=== PATIENT | female | born 1935 | race Caucasian/White ===

== ENCOUNTER 2017-06-27 00:32 | Inpatient (IN) ==
[2017-06-27] MEDS ORDERED: methylPREDNISolone SOD SUC 125 MG/2 ML VIAL IV STA (01:03)
[2017-06-27] MEDS ORDERED: SODIUM CHLORIDE 0.9% 500 ML IV STA (01:03)
[2017-06-27] MEDS ORDERED: ALBUTEROL/IPRATROPIUM 3 ML NEB RESP TX STA (01:03)
[2017-06-27] MEDS ORDERED: cefTRIAXone 1,000 MG in SODIUM CHLORIDE 0.9% 100 ML IV STA (01:04)
[2017-06-27] MEDS ORDERED: methylPREDNISolone SOD SUC 125 MG/2 ML VIAL ONE (01:21)
[2017-06-27] MEDS ORDERED: cefTRIAXone 1,000 MG VIAL ONE (01:21)
--- NOTE | 2017-06-27 01:24 | Emergency Department Note ---
IDayan Emily, am scribing for, and in the presence of, Jagjit Griggs MD 01: 12. Indu Bermudez Charles R, MD, personally performed the services described in this documentation, ascribed by Lexis Hanley in my presence, and it is both accurate and complete . Arrival - Arrival Chief Complaint: Blood Pressure Stated Complaint: hypotension ED Nursing Triage Note: PT TO ROOM VIA [facility] STRETCHER. EMS STATES THEY WERE CALLED FOR LOW BPA ND LOW SATS. BP 126/. SATS 92 ON ROOM AIR AND 96 ON 2LNC. Mode of Arrival: Stretcher Limitations: Altered Mental Status (dementia) Source: RN Notes Reviewed Time Seen by Provider: 06/27/17 00:52 - History of Present Illness HPI Narrative: Pt is a 81 y/o female who was brought to ED by EMS from [facility] for further evaluation of hypotension. Pt is demented and is groggy, not wanting to wake up to answer questions. care home sent pt by EMS without sending report first. Her BP is 134/44 in ED. Pt rolls around in wheelchair at retirement, has COPD and sees Dr. Dacosta. She has low grade fever of 99.6 in ED. Pt's room air sat is at 92 and 96 with O2, but no O2 at retirement. Unsure of BP during the week along with O2 sat. Pt has chronic lesions on right arm and left philippe because pt pickers at her skin. Onset (ago): hour(s) Consistency: constant Severity: mild Severity scale (1-10): 2 Quality: other (low) Allergies/Adverse Reactions: Allergies Allergy/AdvReac Type Severity Reaction Status Date / Time Sulfa (Sulfonamide Allergy Intermediate RASH Verified 06/27/17 00:48 Antibiotics) Home Medications: Home Medications Medication Instructions Recorded Confirmed Type Atorvastatin Calcium 20 mg PO BEDTIME 05/28/15 12/10/16 History Levothyroxine Tab [Synthroid Tab] 100 mcg PO DAILY 05/28/15 12/10/16 History Losartan Potassium 50 mg PO DAILY 05/28/15 12/10/16 History Magnesium Hydroxide Susp [Milk of 2 teaspoon PO Q8H PRN 05/28/15 12/10/16 History Magnesia] Carvedilol [Coreg] 6.25 mg PO BID tablet 05/30/15 12/10/16 Rx Docusate Sodium Cap [Colace Cap] 100 mg PO BID PRN #0 capsule 05/30/15 12/10/16 Rx Magnesium Chloride [Slow Mag] 64 mg PO BID #28 tablet 05/30/15 12/10/16 Rx metFORMIN XR [Glucophage Xr] 500 mg PO DAILY W/BREAKFAST #30 05/30/15 12/10/16 Rx tablet HYDROcodone/ACETAMIN 5-325 [[place] 1 tablet PO Q6H PRN #10 tablet 02/01/16 Rx 5-325] Donepezil [Aricept] 10 mg PO BEDTIME 08/04/16 12/10/16 History Melatonin/Pyridoxine HCl (B6) 9 each PO BEDTIME 08/04/16 12/10/16 History [Melatonin 3 mg Tablet] Multivitamin [Multivitamins] 1 each PO DAILY 08/04/16 12/10/16 History Ramelteon [Rozerem] 8 mg PO BEDTIME 08/04/16 12/10/16 History Sertraline [Zoloft] 100 mg PO DAILY 08/04/16 12/10/16 History Acetaminophen Tab [Tylenol Tab] 650 mg PO Q4H PRN 12/10/16 12/10/16 History Insulin Aspart [NovoLOG] See Protocol SUBCUT ACHS PRN 12/10/16 12/10/16 History LORazepam TAB [Ativan Tab] 0.5 mg PO Q6H PRN 12/10/16 12/10/16 History clonazePAM TAB [KlonoPIN] 0.5 mg PO BID 12/10/16 12/10/16 History LORazepam TAB [Ativan Tab] 0.5 mg PO Q6H PRN #0 tablet 12/13/16 Rx Losartan [Cozaar] 25 mg PO DAILY tablet 12/13/16 Rx Levofloxacin Tab [Levaquin Tab] 500 mg PO DAILY #10 tablet 06/27/17 Rx Review of System - Review of System ROS unobtainable: due to mental status (dementia) Medical,Surgical,& Family Hx - Medical History Cardio: History of: Hypertension Psychological: History of: Behavior Problems (dementia- wandered and picks at skin) Neurology: History of: Dementia Endocrine: History of: Dyslipidemia - Family History Family History: noncontributory - Social History Smoking Status: Smoker, status unknown Frequency of Alcohol Use: None Type of Drug Use: None Marital Status: Single Lives With:: retirement Functional capacity: wheelchair bound Exam Vital Signs: Vital Signs Temperature 99.6 F 06/27/17 00:42 Pulse Rate 51 L 06/27/17 01:27 Respiratory Rate 20 06/27/17 01:27 Blood Pressure 134/44 06/27/17 00:42 O2 Sat by Pulse Oximetry 99 06/27/17 01:27 - General General appearance: lethargic (but arousable), other (chronically demented) - Head Head exam: Present: atraumatic, normocephalic, other (temporal wasting) - Eye Eye exam: Present: PERRL, EOMI - ENT ENT exam: Present: mucous membranes moist. Absent: mucous membranes dry - Chest Chest inspection: Present: symmetric chest wall rise (barrel chested) - Respiratory Respiratory exam: Present: other (deep cough). Absent: respiratory distress - Cardiovascular Cardiovascular exam: Present: bradycardia, normal heart sounds - Extremities Exam Extremities exam: Absent: pedal edema - Neurological Exam Neurological exam: Present: CN II-XII intact. Absent: oriented X3 - Skin Skin exam: Present: warm, dry. Absent: intact (lesions on right wrist) Course Course Narrative: Orders called out to the retirement and talk to when the nurses out there taking care of this patient. After probing there record and prep with our records patient was here December similar symptoms. Patient has a history of COPD combative dementia. Patient likes to pick her skin and poor skin off and she also likes to use colorful language that is offensive to people. They do not do vital signs every Sunday. Her last vital signs were done on 20 June which shows a consistent diastolic pressure that is in the low 50s which is consistent with her blood pressure now. Patient has no fever here. Patient had acute distress appears to be at her baseline dementia sleeping. Patient has COPD she is DNR on her last discharge from the hospital December. We are going to get some labs x-ray breathing treatment recommend patient go back to the retirement continue treatment out there with breathing treatments and possibly put her on some oxygen for COPD. Patient has DNR on her orders. Patient looks like she may have aspiration pneumonia versus some congestive heart failure this chronic according to her previous x-rays. Little worse tonight. Patient will be given antibiotics and treated accordingly sent back to retirement with orders and comfort care measures - Reevaluation(s) Reevaluation #1: Patient reevaluated breath sounds better she has O2 saturation 96% blood pressure stable. Patient blood gas it is less than 2. Patient be sent back to retirement for comfort care continue DNR order and Levaquin daily with 2 L O2 nasal cannula oxygen repeat chest x-ray in 24 hours and breathing treatments every 4 hours. Patient needs to be followed up with the primary care doctor at the retirement and evaluated Time: 03:17 Results - Labs CBC & BMP: 06/27/17 01:40 06/27/17 01:40 Lab Results: I have reviewed the patients labs Labs: Laboratory Tests 06/27/17 06/27/17 01:40 01:40 WBC 12.6 H RBC 3.60 L Hgb 10.2 L Hct 32.8 L MCHC 31.1 L Plt Count 282 Neut % (Auto) 79.1 H Lymph % (Auto) 9.2 L Neut # (Auto) 9.9 H Lymph # (Auto) 1.2 L [place] # (Auto) 1.4 H Sodium 141 Potassium 4.6 Chloride 105 Carbon Dioxide 30 BUN 68 H Creatinine 1.40 H BUN/Creatinine Ratio 48.00 H Glucose 184 H Calculated Osmolality 305.3 H Magnesium 2.6 H AST 13 ALT 12 L Albumin 2.7 L Globulin 3.7 H Albumin/Globulin Ratio 0.7 L - Diagnostic Findings Procedure: Chest x-ray: image reviewed by me (Possible right lower lobe pneumonia/aspiration/edema) Disposition Clinical Impression: Failure to thrive, Debility, unspecified, Community acquired pneumonia, Pulmonary edema, Upper respiratory illness, COPD (chronic obstructive pulmonary disease), Dementia Case discussed with: patient Disposition: Disch To Home/Self Care Condition: Stable Additional Instructions: Instructions for patient at the retirement Patient needs DuoNeb treatments every 4-6 hours Patient needs 2 L O2 nasal cannula Patient is to take Levaquin 500 mg daily for 10 days Patient needs repeat chest x-ray in 24-36 hours Patient needs to follow-up with primary care doctor at the retirement for improvement Prescriptions: Levofloxacin Tab [Levaquin Tab] 500 mg PO DAILY #10 tablet Time of Disposition: 03:18 Contact your physician if you experience:: fever over 101, Difficulty voiding, Redness or swelling, Nausea/Vomiting, Shortness of breath, Bleeding, pain uncontrolled by pain medications, Other Return to the Emergency Department if:: fever over 101, Difficulty voiding, Redness or swelling, Nausea/Vomiting, Shortness of breath, Bleeding, pain uncontrolled by pain medications, Other
[2017-06-27 01:49] LABS: Basophils % 0.2 % (0.0-0.8); Eosinophils % 0.1 % (0.00-10.9); Hematocrit 32.8 VOL% (35.7-47.0); Hemoglobin 10.2 GM/DL (12.0-16.0); Immature Granulocytes % 0.6 %; Immature Granulocytes Absolute 0.07 #; Lymphocytes # 1.2 10*3/uL (1.4-4.0); Lymphocytes % 9.2 % (21.3-54.2); Mean Corpuscular HGB Conc 31.1 GM/DL (32-36); Mean Corpuscular Hemoglobin 28 PG (27-34); Mean Corpuscular Volume 91.1 FL (87-102); Mean Platelet Volume 11.7 FL (9.6-12.0); Monocytes # 1.4 10*3/uL (0.11-0.8); Monocytes % 10.8 % (1.7-12.7); Neutrophils # 9.9 10*3/uL (1.4-7.4); Neutrophils % 79.1 % (38.7-73.9); Platelet Count 282 T/CUMM (130-400); Red Cell Distribution Width 13.4 % (9.3-17.3); White Blood Count 12.6 T/CUMM (4-12)
[2017-06-27 02:08] LABS: Albumin 2.7 G/DL (3.4-5.0); Bilirubin,Total 0.7 MG/DL (0.2-1.0); Calcium 8.8 MG/DL (8.5-10.1); Magnesium 2.6 MG/DL (1.8-2.4); Osmolality,Calculated 305.3 MOS/KG (273-304); Potassium 4.6 MMOL/L (3.5-5.1); Total Protein 6.4 G/DL (6.4-8.3)
[2017-06-27] MEDS ORDERED: FUROSEMIDE 20 MG/2 ML VIAL IV STA (02:34)
[2017-06-27] MEDS ORDERED: LEVOFLOXACIN INJ 500 MG in PREMIX 1 EACH IV STA (02:35)
[2017-06-27] MEDS ORDERED: LEVOFLOXACIN INJ 100 ML IV ONE (03:00)
[2017-06-27] MEDS ORDERED: FUROSEMIDE 20 MG/2 ML VIAL ONE (03:00)
[2017-06-27] MEDS ORDERED: FUROSEMIDE 40 MG/4 ML VIAL IV STA (03:32)
[2017-06-27] MEDS ORDERED: FUROSEMIDE 40 MG/4 ML VIAL ONE (03:36)
[2017-06-27 03:47] LABS: Apearance,Urine CLOUDY (Clear); Bacteria,Urine Many /HPF (Few); Blood, Urine Negative (Negative); Glucose,Urine (UA) Negative (Negative); Ketones,Urine 5 mg/dL (Negative); Mucus,Urine Many /LPF (Occasional); Nitrite,Urine Negative (Negative); Protein,Urine >=500 MG/DL; RBC,Urine 6 /HPF (0-4); Squamous Epithelial Cell,Urine Occasional /HPF (0-10); Urine Specific Gravity 1.025 (1.001-1.035); WBC,Urine 28 /HPF (0-6)
[2017-06-27 03:50] LABS: Bilirubin,Urine Small mg/dL (Negative)
[2017-06-27 03:51] LABS: Urine Color Dark Yellow (Yellow)
--- NOTE | 2017-06-27 03:56 | EKG Report ---
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
[2017-06-27] MEDS ORDERED: ALBUTEROL NEB SOLN 5 MG/ML 20 ML/BOTTLE CONT NEB STA (04:11)
[2017-06-27 04:27] LABS: Band Neutrophils 6 % (0-10); Lymphocytes 15 % (20-55); Myelocytes 6 %; Segmented Neutrophils 70 % (50-85)
[2017-06-27 04:28] LABS: Platelet Estimate Normal; Total Cells Counted 100
[2017-06-27 04:44] LABS: Troponin I Only 0.229 NG/ML (0.00-0.045)
--- NOTE | 2017-06-27 05:35 | Hospitalist History & Physical ---
Assessment and Plan - Time spent with patient Time spent with patient: Greater than 30 minutes (1) Aspiration pneumonia Status: Acute Assessment and plan: Admit to hospitalist services. Worsened CXR compared to previous. BNP 827, Troponin 0.229. History of aspiration. Aspiration pneumonia vs. CHF; consider CT chest. Given Solumedrol, Levaquin and Rocephin in ED; Continue. Breathing treatments PRN. Blood cultures obtained in ED; follow. Obtain Echo. Current Visit: Yes (2) UTI (urinary tract infection) Status: Acute Assessment and plan: Levaquin 500 mg Q24 hours. Rocephin 1 gram Q 24 hours. Follow urine cultures obtained in ED. Current Visit: Yes (3) Acute renal failure Status: Acute Assessment and plan: Continue gentle hydration with NS at 60 ml/hr. Repeat CMP in am. Current Visit: Yes (4) Bradycardia Status: Acute Assessment and plan: Stable. Monitor. Current Visit: Yes (5) COPD (chronic obstructive pulmonary disease) Status: Acute Assessment and plan: Solumedrol and breathing treatment given in ED. Continue with PRN nebs and solumedrol 40 mg IV Q8 hours. Levaquin 500 mg IV q 24 hours. Rocephin 1 gram IV Q 24 hours. Current Visit: Yes (6) Hypertension Status: Acute Assessment and plan: Home medications not updated in computer at this time. Request has been made of nursing staff to update. Monitor BP and continue medications as appropriate when updated list is available. Current Visit: No (7) Diabetes mellitus type 2 in nonobese Status: Chronic Assessment and plan: Home medications not updated in computer at this time. Request has been made of nursing staff to update. Continue medications as appropriate when updated list is available ADA diet. Accuchecks and SSI ACHS. Current Visit: No (8) Dementia Status: Chronic Assessment and plan: Placed on fall precautions. PMH indicates patient has a tendency to wander. Current Visit: Yes (9) DVT prophylaxis Status: Acute Assessment and plan: Lovenox 40 mg SQ daily. Current Visit: Yes History of Present Illness Chief complaint: Low O2 sats and hypotension History of present illness: Ms. Mcgraw is a 81 year old female with a past medical history of HTN, anxiety, dementia, COPD, and NIDDM who was [facility] the ED tonight [facility] staff for reports of low O2 sats and hypotension, although BP has been stable throughout the ED stay. Ms. Mcgraw is sleeping soundly and does not want to wake up to answer questions. When she does arouse, she is agitated and unable to appropriately answer questions. History was taken from ERP. In the ED , her O2 sats were found to be 92% on RA, rising to 96% on O2. She has a low grade temp at 99.6. Further workup in the ED revealed a significantly worse CXR compared to previous indicating new onset CHF. Patient has a history of aspiration, so ERP feels she could have some aspiration pneumonia on right side with superimposed CHF. Additionally, her UA indicated she has a UTI. WBC was 12.6, Creatinine 1.4, Magnesium 2.6, Troponin 0.229, and BNP 827. Hospitalist services were consulted, and the patient will be admitted for further evaluation and treatment. Home medications were not available for reconciliation at this time. This patient is a DNR. Home Medications Medication Instructions Recorded Confirmed Type Atorvastatin Calcium 20 mg PO BEDTIME 05/28/15 12/10/16 History Levothyroxine Tab [Synthroid Tab] 100 mcg PO DAILY 05/28/15 12/10/16 History Losartan Potassium 50 mg PO DAILY 05/28/15 12/10/16 History Magnesium Hydroxide Susp [Milk of 2 teaspoon PO Q8H PRN 05/28/15 12/10/16 History Magnesia] Carvedilol [Coreg] 6.25 mg PO BID tablet 05/30/15 12/10/16 Rx Docusate Sodium Cap [Colace Cap] 100 mg PO BID PRN #0 capsule 05/30/15 12/10/16 Rx Magnesium Chloride [Slow Mag] 64 mg PO BID #28 tablet 05/30/15 12/10/16 Rx metFORMIN XR [Glucophage Xr] 500 mg PO DAILY W/BREAKFAST #30 05/30/15 12/10/16 Rx tablet HYDROcodone/ACETAMIN 5-325 [[place] 1 tablet PO Q6H PRN #10 tablet 02/01/16 Rx 5-325] Donepezil [Aricept] 10 mg PO BEDTIME 08/04/16 12/10/16 History Melatonin/Pyridoxine HCl (B6) 9 each PO BEDTIME 08/04/16 12/10/16 History [Melatonin 3 mg Tablet] Multivitamin [Multivitamins] 1 each PO DAILY 08/04/16 12/10/16 History Ramelteon [Rozerem] 8 mg PO BEDTIME 08/04/16 12/10/16 History Sertraline [Zoloft] 100 mg PO DAILY 08/04/16 12/10/16 History Acetaminophen Tab [Tylenol Tab] 650 mg PO Q4H PRN 12/10/16 12/10/16 History Insulin Aspart [NovoLOG] See Protocol SUBCUT ACHS PRN 12/10/16 12/10/16 History LORazepam TAB [Ativan Tab] 0.5 mg PO Q6H PRN 12/10/16 12/10/16 History clonazePAM TAB [KlonoPIN] 0.5 mg PO BID 12/10/16 12/10/16 History LORazepam TAB [Ativan Tab] 0.5 mg PO Q6H PRN #0 tablet 12/13/16 Rx Losartan [Cozaar] 25 mg PO DAILY tablet 12/13/16 Rx Furosemide Tab [Lasix Tab] 20 mg PO BID DIURETIC #60 tablet 06/27/17 Rx Levofloxacin Tab [Levaquin Tab] 500 mg PO DAILY #10 tablet 06/27/17 Rx Potassium Chloride Cap/Tab [K Dur] 20 meq PO DAILY #30 tablet 06/27/17 Rx Allergies Allergy/AdvReac Type Severity Reaction Status Date / Time Sulfa (Sulfonamide Allergy Intermediate RASH Verified 06/27/17 00:48 Antibiotics) Medical,Surgical,& Family Hx - Medical History Cardio: History of: Hypertension Psychological: History of: Anxiety Disorders, Behavior Problems (dementia- wandered and picks at skin) Neurology: History of: Dementia Endocrine: History of: Diabetes Mellitus (NIDDM), Dyslipidemia - Surgical History Surgical History: noncontributory (Unable to obtain due to patient mental status.) - Family History Family History: noncontributory (Unable to obtain due to patient mental status.) - Social History Smoking Status: Smoker, status unknown (Unable to obtain due to patient mental status.) Frequency of Alcohol Use: Unknown (Unable to obtain due to patient mental status.) Type of Drug Use: Unknown (Unable to obtain due to patient mental status. ) Marital Status: Unknown (Unable to obtain due to patient mental status.) Lives With:: intermediate Functional capacity: wheelchair bound (per jail records) ROS unobtainable: due to mental status, due to dementia Exam - Constitutional Vitals: Period Temp Pulse Resp BP Sys/Rueda Pulse Ox Last 24 Hr 99.6 F-99.6 F 51-55 20-22 134-134/44-44 92-99 Exam: Constitutional System: Low grade temp. Sleeping, arouses to tactile stimuli but is agitated when awake. [No] distress. [No] tremulousness. Head: Normocephalic, atraumatic. Ears, Nose and Throat System: No pain or tenderness. No epistaxis or discharge Eyes System: Pupils equal, round, and reactive. Extraocular muscles intact. Neck: Supple, without adenopathy, [No] jugular venous distention. No thyromegaly , neck mass, or prior surgery apparent. Respiratory System: Rhonchi and wheezing noted. Cardiovascular System: Heart with [bradycardic] rate and rhythm. [No] murmur. GI System: Abdomen [soft], [non]tender. [Normo]active bowel sounds present. Musculoskeletal System: Limbs with [no] pedal edema. [Full] distal pulses. Normal capillary refill. Neurological System: Sleeping, arouses to tactile stimuli but is agitated when awake. Psychiatric System: Sleeping, arouses to tactile stimuli but is agitated when awake. Results - Labs CBC & BMP: 06/27/17 01:40 06/27/17 01:40 Lab Results: I have reviewed the past 24 hour labs
[2017-06-27] MEDS ORDERED: MORPHINE 2 MG/1 ML SYRINGE IV PRN (07:27)
[2017-06-27] MEDS ORDERED: ONDANSETRON 4 MG/2 ML VIAL IV PRN (07:27)
[2017-06-27] MEDS ORDERED: GLUCAGON 1 MG VIAL IM PRN (07:27)
[2017-06-27] MEDS ORDERED: DEXTROSE 50% 25 GM/50 ML SYRINGE IV PRN (07:27)
--- NOTE | 2017-06-27 07:58 | XRay Report ---
XR chest 1V portable Indication: COPD, cough Comparison: Chest x-ray dated December 10, 2016 Technique: Single frontal view of the chest. Findings: [id number] cardiomegaly. Opacification of the right mid and lower lung suspicious for pneumonia. Recommend follow-up imaging to document resolution. Visualized osseous and surrounding soft tissue structures appear grossly unchanged. IMPRESSION: As above. PROCEDURE INTERPRETED AT [facility] DEPARTMENT OF RADIOLOGY Final Report Signed by: Dr Hermilo Calloway
[2017-06-27] MEDS ORDERED: LEVOFLOXACIN INJ 500 MG in PREMIX 1 EACH IV ONE (08:00)
[2017-06-27] MEDS ORDERED: FUROSEMIDE 40 MG/4 ML VIAL IV SCH (08:00)
--- NOTE | 2017-06-27 08:10 | Hospitalist Progress Note ---
Assessment and Plan (1) UTI (urinary tract infection) Status: Acute Assessment and plan: She was begun last night on intravenous levofloxacin and ceftriaxone. Cultures and sensitivities are pending. Current Visit: No Qualifiers: Urinary tract infection type: site unspecified Hematuria presence: without hematuria Qualified Code(s): N39.0 - Urinary tract infection, site not specified (2) Dementia Status: Chronic Assessment and plan: She has a previously well-known history of severe dementia. She is not responsive to verbal communication. Current Visit: Yes Qualifiers: Dementia type: unspecified type (3) Diabetes mellitus type 2 in nonobese Status: Chronic Assessment and plan: Her admission laboratory testing demonstrated glucose 184. She is being treated with sliding scale insulin coverage. Current Visit: No (4) Hypertension Status: Acute Assessment and plan: Blood pressure today is 153/59. Current Visit: No Qualifiers: Hypertension type: essential hypertension Qualified Code(s): I10 - Essential (primary) hypertension (5) Renal insufficiency Status: Acute Assessment and plan: Admission laboratory testing demonstrated BUN and creatinine of 68 and 1.4 respectively. It is not clear at this time if this is acute on chronic renal failure, chronic renal failure, or acute renal failure. She was begun last night on intravenous sodium chloride 0.9% infusion at 60 mL/h. We will monitor her renal function. Current Visit: Yes (6) Aspiration pneumonia Status: Acute Assessment and plan: She was begun last night and intravenous levofloxacin and ceftriaxone. She appears to be comfortable with no respiratory distress. Current Visit: Yes Qualifiers: Aspiration pneumonia type: unspecified Laterality: right Lung location: unspecified part of lung Qualified Code(s): J69.0 - Pneumonitis due to inhalation of food and vomit Hospitalist: Subjective Interval history: Ms. Mcgraw was admitted to the hospital last night with pneumonia and a urinary tract infection. She has a previous history of chronic obstructive pulmonary disease, type 2 diabetes mellitus, hypertension, dementia, and chronic kidney disease. She was begun last night on intravenous levofloxacin and ceftriaxone. She is unable to communicate. She appears comfortable and in no distress. I plan to continue her previous home medications and the above antibiotics. Exam - Constitutional Vitals: Period Temp Pulse Resp BP Sys/Rueda Pulse Ox Last 24 Hr 97.5 F-99.6 F 51-58 16-24 134-153/44-59 90-100 General appearance: no acute distress, cachectic - Head Head exam: Present: normal inspection - Neck Neck exam: Present: normal inspection - Respiratory Respiratory exam: Present: clear to auscultation bilaterally - Cardiovascular Cardiovascular exam: Present: regular rate and rhythm - GI/Abdominal GI/Abdominal exam: Present: normal bowel sounds, soft, other (Nontender with no palpable masses or hepatosplenomegaly.) - Extremities Exam Extremities exam: Present: normal inspection - Neurological Exam Neurological exam: Present: other (Unresponsive to verbal communication.) - Skin Skin exam: Present: normal color, warm, intact Results - Labs CBC & BMP: 06/27/17 01:40 06/27/17 01:40
--- NOTE | 2017-06-27 08:20 | EKG Report ---
Stationary ECG Study [facility] Test Date: 06/27/2017 8:18:46 AM Pat Name: BRAN BUSTILLO Department: Room: 517 Gender: F Special Events Coordinator: JOAN : 1935 Requested by: Jagjit Dugan Order Number: [id number] Reading MD: VICENTE CASE Intervals [place] Rate: 49 P: 65 SC: 186 QRS: 74 QRSD: 150 T: 57 QT: 515 QTc: 486 Interpretive Statements SINUS BRADYCARDIA at 49 bpm RIGHT BUNDLE BRANCH BLOCK Electronically Signed On 06-30-17 12:20:13 CDT by VICENTE CASE [id number]
[2017-06-27] MEDS: cefTRIAXone 1,000 MG in SODIUM CHLORIDE 0.9% 100 ML IV SCH (09:50)
[2017-06-27] MEDS: methylPREDNISolone SOD SUC 40 MG/1 ML VIAL IV SCH ×3 (09:51→22:38)
[2017-06-27] MEDS: ENOXAPARIN 40 MG/0.4 ML SYRINGE SUBCUT SCH (09:51)
[2017-06-27] MEDS: INSULIN REGULAR 100 UNIT/ML SUBCUT SCH ×4 (10:43→20:07)
[2017-06-27] MEDS: SODIUM CHLORIDE 0.9% 1,000 ML IV SCH (11:33)
[2017-06-27] MEDS: PANTOPRAZOLE 40 MG TABLET PO SCH (14:55)
[2017-06-28 05:13] LABS: Amorphous Crystals,Urine Occasional /HPF (Few); Apearance,Urine CLEAR (Clear); Bacteria,Urine Occasional /HPF (Few); Bilirubin,Urine Negative (Negative); Blood, Urine Negative (Negative); Glucose,Urine (UA) Negative (Negative); Hyaline Casts,Urine 4 /LPF (0-3); Ketones,Urine 5 mg/dL (Negative); Mucus,Urine Occasional /LPF (Occasional); Nitrite,Urine Negative (Negative); Protein,Urine 100 MG/DL; RBC,Urine 1 /HPF (0-4); Squamous Epithelial Cell,Urine Occasional /HPF (0-10); Urine Color Yellow (Yellow); Urine Specific Gravity 1.019 (1.001-1.035); Urine Urobilinogen < 2.0 EU/DL (0.2-1.0); WBC,Urine 3 /HPF (0-6)
[2017-06-28] MEDS: SODIUM CHLORIDE 0.9% 1,000 ML IV SCH ×2 (06:22→17:51)
[2017-06-28] MEDS: methylPREDNISolone SOD SUC 40 MG/1 ML VIAL IV SCH ×3 (06:34→22:57)
[2017-06-28] MEDS: cefTRIAXone 1,000 MG in SODIUM CHLORIDE 0.9% 100 ML IV SCH (06:36)
[2017-06-28] MEDS: ENOXAPARIN 40 MG/0.4 ML SYRINGE SUBCUT SCH (06:38)
--- NOTE | 2017-06-28 06:47 | Physician Query Form ---
CLICK EDIT DOCUMENT TO SELECT QUERY ANSWER --> OK --> SIGN Justa Cunningham RN, CCDS Certified Clinical Medical Office Scheduler W) [phone] (f) [phone] [email or web address] PROVIDERS: Make your selection(s) from the choices in EACH section by typing an "x" and enter comments in the comment section. Please use your independent medical judgment in providing your response. This request does not imply that any particular answer is desired or expected. CLINICAL INDICATORS: (Providers should not edit this section) The medical record indicates that the patient was admitted with pneumonia, CHF, BNP 827#, "pulmonary edema" and the patient was treated with several doses of Lasix (IV). An echo from 2014 shows a normal ejection fraction of 50- 55%. Please provide further specificity regarding CHF. ACUITY: (x ) Acute ( ) Chronic ( ) Acute on Chronic ( ) Clinically unable to determine TYPE: ( ) Systolic (HFrEF - heart failure with reduced systolic function/EF) ( x) Diastolic (HFpEF - heart failure with preserved systolic function/EF) ( ) Combined Systolic/Diastolic ( ) Other, please specify: ( ) Clinically unable to determine ( ) Past Medical History of Systolic CHF ( ) Past Medical History of Diastolic CHF ( ) Clinically unable to determine COMMENTS: PLEASE ALSO DOCUMENT RESPONSE IN PROGRESS NOTES AND/OR DISCHARGE SUMMARY Use of terms such as suspected, likely, or probable (associated with a specific diagnosis that is being evaluated, monitored, or treated as if it exists) are acceptable and can be restated in the discharge summary if not ruled out. MTDD
[2017-06-28 06:57] LABS: Basophils % 0.1 % (0.0-0.8); Hematocrit 31.8 VOL% (35.7-47.0); Hemoglobin 10.1 GM/DL (12.0-16.0); Immature Granulocytes % 0.5 %; Immature Granulocytes Absolute 0.07 #; Lymphocytes # 0.8 10*3/uL (1.4-4.0); Lymphocytes % 5.6 % (21.3-54.2); Mean Corpuscular HGB Conc 31.8 GM/DL (32-36); Mean Corpuscular Hemoglobin 28 PG (27-34); Mean Corpuscular Volume 88.8 FL (87-102); Mean Platelet Volume 11.8 FL (9.6-12.0); Monocytes # 0.6 10*3/uL (0.11-0.8); Monocytes % 4.3 % (1.7-12.7); Neutrophils # 12.8 10*3/uL (1.4-7.4); Neutrophils % 89.5 % (38.7-73.9); Platelet Count 332 T/CUMM (130-400); Red Blood Count 3.58 MC/CUMM (3.8-5.5); Red Cell Distribution Width 13.2 % (9.3-17.3); White Blood Count 14.3 T/CUMM (4-12)
--- NOTE | 2017-06-28 07:18 | XRay Report ---
Exam: XR chest 1V portable Date: 06/28/2017 4:00 AM Indication: Shortness of breath Comparison: None Technical: 06/27/2017 Findings: Cardiomegaly present. Underlying component of fibrotic scarring is present. There is a patchy infiltrate in the right base with low volume right effusion. External cardiac leads are present oxygen tubing is noted. ASVD is present. Minimal interstitial thickening in the perihilar regions also present bilaterally. Impression: 1. Bilateral perihilar and right basilar pneumonic infiltrate with low volume right parapneumonic effusion suspected superimposed on chronic lung disease. 2. Cardiomegaly PROCEDURE INTERPRETED AT [facility] DEPARTMENT OF RADIOLOGY Final Report Signed by: Dr. Jon Duval
[2017-06-28 07:29] LABS: Calcium 8.8 MG/DL (8.5-10.1); Osmolality,Calculated 309.1 MOS/KG (273-304); Potassium 4.3 MMOL/L (3.5-5.1)
[2017-06-28 07:36] LABS: Albumin 2.3 G/DL (3.4-5.0); Bilirubin,Total 0.5 MG/DL (0.2-1.0); Magnesium 2.3 MG/DL (1.8-2.4); Potassium 4.3 MMOL/L (3.5-5.1); Total Protein 6.1 G/DL (6.4-8.3)
[2017-06-28] MEDS: INSULIN REGULAR 100 UNIT/ML SUBCUT SCH ×4 (09:36→20:47)
[2017-06-28] MEDS: PANTOPRAZOLE 40 MG TABLET PO SCH (09:36)
[2017-06-28] MEDS: LEVOFLOXACIN INJ 250 MG in PREMIX 1 EACH IV SCH (09:37)
--- NOTE | 2017-06-28 13:21 | Hospitalist Progress Note ---
Assessment and Plan (1) Acute renal failure Status: Acute Assessment and plan: Creatinine has improved. BUN is still elevated. She has no JVD. I agree with continuing gentle hydration with normal saline. Continue to watch labs Current Visit: Yes (2) Aspiration pneumonia Status: Acute Assessment and plan: Chest x-ray still shows considerable congestion right middle and lower lung. X- ray shows perihilar and right lower lobe infiltrate with parapneumonic effusion. White count is still elevated. Will broaden antibiotic coverage. Change Rocephin to Zosyn and add vancomycin, Continue Levaquin. Current Visit: Yes Qualifiers: Aspiration pneumonia type: unspecified Laterality: right Lung location: unspecified part of lung Qualified Code(s): J69.0 - Pneumonitis due to inhalation of food and vomit (3) COPD (chronic obstructive pulmonary disease) Status: Acute Current Visit: Yes (4) UTI (urinary tract infection) Status: Acute Assessment and plan: Culture growing gram-negative colby. Await ID Current Visit: Yes (5) Dementia Status: Chronic Current Visit: Yes Qualifiers: Dementia type: unspecified type (6) UTI (urinary tract infection) Status: Acute Current Visit: No Qualifiers: Urinary tract infection type: site unspecified Hematuria presence: without hematuria Qualified Code(s): N39.0 - Urinary tract infection, site not specified Hospitalist: Subjective Interval history: Nursing reports no new problems. She has Alzheimer dementia and is chronically very confused. She has pulled out her IV multiple times and refuses to wear her oxygen. I checked her oxygen saturation at bedside and was 88% on room air. She is complaining that her eyes are irritated. Exam - Constitutional Vitals: Period Temp Pulse Resp BP Sys/Rueda Pulse Ox Last 24 Hr 97.2 F-98.1 F 38-62 16-20 151-174/57-85 93-95 - Eye Eye exam: Present: other (There is mild erythema of her upper and lower eyelids. Conjunctiva however appear clear and not erythematous.) - Respiratory Respiratory exam: Present: other (Scattered basilar rales) - Cardiovascular Cardiovascular exam: Present: regular rate and rhythm. Absent: JVD - GI/Abdominal GI/Abdominal exam: Present: soft. Absent: tenderness - Extremities Exam Extremities exam: Absent: edema - Neurological Exam Neurological exam: Present: alert. Absent: oriented X3 - Psychiatric Psychiatric exam: Present: normal affect Results - Labs CBC & BMP: 06/28/17 04:38 06/28/17 04:38
[2017-06-28] MEDS: PIPERACILLIN/TAZOBACTAM 3,375 MG in SODIUM CHLORIDE 0.9% 100 ML IV SCH ×2 (14:53→22:59)
--- NOTE | 2017-06-28 16:31 | ECHO Report ---
Ching Mcgraw Exam Date: 06/27/2017 09:12 Referring Physician: Technologist: Lilian Herrera Age: 81 Ht (in): 66 Wt (lb): 120 Gender: F Exam Location: [facility] Echo Indications: HTN, bradycardia, COPD, diabetes, UTI, dementia, pneumonia BP: 153 / 59 HR: 54 Rhythm: bradycardia Technical Quality: Technically difficult study IMPRESSIONS Left ventricular ejection fraction is estimated at 60% and there is no regional wall motion abnormality. Diastolic parameters are most consistent with grade 3 diastolic dysfunction. Tricuspid regurgitation velocities suggest a RVSP of 56 mmHg + RAP. MEASUREMENTS (Male / Female) Normal Values 2D ECHO LV Diastolic Diameter PLAX 3.7 cm 4.2 - 5.9 / 3.9 - 5.3 cm LV Systolic Diameter PLAX 1.8 cm LV Fractional Shortening PLAX 49.8 % IVS Diastolic Thickness 1.2 cm 0.6 - 1.0 / 0.6 - 0.9 cm LVPW Diastolic Thickness 1.0 cm 0.6 - 1.0 / 0.6 - 0.9 cm RV Internal Dim ED PLAX 2.1 cm Aortic Root Diameter 2.4 cm LA Systolic Diameter LX 3.6 cm 3.0 - 4.0 / 2.7 - 3.8 cm DOPPLER TR Peak Velocity 376.0 cm/s TR Peak Gradient 56.6 mmHg FINDINGS Left Ventricle Normal left ventricular cavity size. Mild concentric left ventricular hypertrophy with moderate diastolic dysfunction. Left ventricular ejection fraction is estimated at 60% and there is no regional wall motion abnormality. Diastolic parameters are most consistent with grade 3 diastolic dysfunction. Right Ventricle Normal right ventricular size. Right Atrium The right atrium is mildly enlarged. Left Atrium Moderately increased left atrial size. Mitral Valve Mildly thickened mitral valve with trace -mild mitral regurgitation. There is mild posterior mitral calcification Aortic Valve Aortic valve sclerosis without stenosis or regurgitation. Tricuspid Valve Morphologically normal tricuspid valve. Moderate tricuspid valve regurgitation. Tricuspid regurgitation velocities suggest a RVSP of 56 mmHg + RAP. Pulmonic Valve Pulmonic valve not well visualized. Pericardium No pericardial effusion. Aorta Normal size aortic root and proximal ascending aorta. Alison Tao (Electronically Signed) Final Date: 28 June 2017 16:28
[2017-06-28] MEDS ORDERED: VANCOMYCIN INJ 750 MG in SODIUM CHLORIDE 0.9% 250 ML IV SCH (20:00)
[2017-06-29] MEDS: guaiFENesin 200 MG/10 ML UDCUP PO PRN ×2 (06:23→18:00)
[2017-06-29] MEDS: methylPREDNISolone SOD SUC 40 MG/1 ML VIAL IV SCH ×2 (06:27→15:18)
[2017-06-29] MEDS: ENOXAPARIN 40 MG/0.4 ML SYRINGE SUBCUT SCH (06:29)
[2017-06-29] MEDS: PIPERACILLIN/TAZOBACTAM 3,375 MG in SODIUM CHLORIDE 0.9% 100 ML IV SCH ×2 (06:29→15:18)
[2017-06-29 07:35] LABS: Basophils % 0.1 % (0.0-0.8); Hematocrit 34.7 VOL% (35.7-47.0); Hemoglobin 11.1 GM/DL (12.0-16.0); Immature Granulocytes % 0.8 %; Immature Granulocytes Absolute 0.13 #; Lymphocytes % 6.3 % (21.3-54.2); Mean Corpuscular Hemoglobin 28 PG (27-34); Mean Corpuscular Volume 88.1 FL (87-102); Mean Platelet Volume 11.3 FL (9.6-12.0); Monocytes # 0.8 10*3/uL (0.11-0.8); Monocytes % 5.1 % (1.7-12.7); Neutrophils # 14.3 10*3/uL (1.4-7.4); Neutrophils % 87.7 % (38.7-73.9); Platelet Count 291 T/CUMM (130-400); Red Blood Count 3.94 MC/CUMM (3.8-5.5); Red Cell Distribution Width 13.2 % (9.3-17.3); White Blood Count 16.3 T/CUMM (4-12)
--- NOTE | 2017-06-29 07:38 | XRay Report ---
Exam: XR chest 1V portable Date: 06/29/2017 4:00 AM Indication: Pneumonia hypoxemia Comparison: 06/28/2017 Technical: AP Findings: Mild cardiac enlargement. Patchy infiltrate present in the right base. ASVD is present. Oxygen tubing external cardiac leads are present. Underlying component of COPD present. Impression: 1. Persistent patchy pneumonic infiltrate in the right base with a superimposed COPD changes. PROCEDURE INTERPRETED AT [facility] DEPARTMENT OF RADIOLOGY Final Report Signed by: Dr. Jon Duval
[2017-06-29 08:06] LABS: Albumin 2.2 G/DL (3.4-5.0); Bilirubin,Total 0.4 MG/DL (0.2-1.0); Calcium 8.6 MG/DL (8.5-10.1); Osmolality,Calculated 301.3 MOS/KG (273-304); Potassium 3.8 MMOL/L (3.5-5.1); Total Protein 5.6 G/DL (6.4-8.3)
[2017-06-29] MEDS: PANTOPRAZOLE 40 MG TABLET PO SCH (08:14)
[2017-06-29] MEDS: LEVOFLOXACIN INJ 250 MG in PREMIX 1 EACH IV SCH (08:14)
[2017-06-29] MEDS: INSULIN REGULAR 100 UNIT/ML SUBCUT SCH ×4 (08:26→21:08)
--- NOTE | 2017-06-29 08:36 | Hospitalist Progress Note ---
Assessment and Plan - Time spent with patient Time spent with patient: Greater than 30 minutes (1) UTI (urinary tract infection) Status: Acute Current Visit: No Qualifiers: Urinary tract infection type: site unspecified Hematuria presence: without hematuria Qualified Code(s): N39.0 - Urinary tract infection, site not specified (2) Dementia Status: Chronic Current Visit: Yes Qualifiers: Dementia type: unspecified type (3) Change in mental status Status: Acute Current Visit: No (4) Diabetes mellitus type 2 in nonobese Status: Chronic Current Visit: No (5) Hypertension Status: Acute Current Visit: No Qualifiers: Hypertension type: essential hypertension Qualified Code(s): I10 - Essential (primary) hypertension (6) COPD (chronic obstructive pulmonary disease) Status: Acute Current Visit: Yes (7) Aspiration pneumonia Status: Acute Current Visit: Yes Qualifiers: Aspiration pneumonia type: unspecified Laterality: right Lung location: unspecified part of lung Qualified Code(s): J69.0 - Pneumonitis due to inhalation of food and vomit (8) Acute renal failure Status: Acute Assessment and plan: She is currently on Levaquin Zosyn and vancomycin, since cultures are negative, we will discontinue vancomycin and continue the other antibiotics. Continue to follow cultures and adjust antibiotics accordingly. Continue gentle IV fluid hydration, monitor for fluid overload. Since there is suspicion of aspiration pneumonia, will obtain swallowing studies Slightly elevated blood glucoses due to steroids, will continue sliding scale insulin and hope that once steroids are tapered off her blood sugars will improve. DVT prophylaxis Current Visit: Yes Hospitalist: Subjective Interval history: 81-year-old lady with history of Alzheimer's who is being managed for suspected aspiration pneumonia with secondary hypoxic respiratory failure possible component of CHF, acute kidney injury. Overnight, she had no new problems. Much more awake and interactive She has been on IV antibiotics, steroid. BUN continues to improve Blood cultures are negative but leukocytosis worsened slightly, I suspect this is due to steroid. Urine culture report noted, gram-negative blood count is significant. She has remained afebrile. Exam - Constitutional Vitals: Period Temp Pulse Resp BP Sys/Rueda Pulse Ox Last 24 Hr 97 F-98.1 F 44-100 16-20 145-167/64-85 92-95 Exam: - Eye Eye exam: Present: other (There is mild erythema of her upper and lower eyelids. Conjunctiva however appear clear and not erythematous.) - Respiratory Respiratory exam: Present: other (Scattered basilar rales) - Cardiovascular Cardiovascular exam: Present: regular rate and rhythm. Absent: JVD - GI/Abdominal GI/Abdominal exam: Present: soft. Absent: tenderness - Extremities Exam Extremities exam: Absent: edema - Neurological Exam Neurological exam: Present: alert. Absent: oriented X3 - Psychiatric Psychiatric exam: Present: normal affect Results - Labs CBC & BMP: 06/29/17 07:20 06/29/17 07:20
[2017-06-29] MEDS: SODIUM CHLORIDE 0.9% 1,000 ML IV SCH ×2 (10:14→15:18)
--- NOTE | 2017-06-29 10:25 | EKG Report ---
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
[2017-06-29] MEDS: ALBUTEROL/IPRATROPIUM 3 ML NEB RESP TX SCH (20:51)
[2017-06-30] MEDS: ALBUTEROL/IPRATROPIUM 3 ML NEB RESP TX SCH ×4 (00:30→19:29)
[2017-06-30] MEDS: PIPERACILLIN/TAZOBACTAM 3,375 MG in SODIUM CHLORIDE 0.9% 100 ML IV SCH ×4 (01:06→23:01)
[2017-06-30] MEDS: methylPREDNISolone SOD SUC 40 MG/1 ML VIAL IV SCH ×2 (01:07→07:42)
[2017-06-30] MEDS: SODIUM CHLORIDE 0.9% 1,000 ML IV SCH (04:52)
[2017-06-30 06:53] LABS: Basophils % 0.1 % (0.0-0.8); Eosinophils % 0.1 % (0.00-10.9); Hematocrit 37.7 VOL% (35.7-47.0); Hemoglobin 12.3 GM/DL (12.0-16.0); Immature Granulocytes % 1.2 %; Lymphocytes # 1.1 10*3/uL (1.4-4.0); Lymphocytes % 6.3 % (21.3-54.2); Mean Corpuscular HGB Conc 32.6 GM/DL (32-36); Mean Corpuscular Hemoglobin 28 PG (27-34); Mean Corpuscular Volume 85.5 FL (87-102); Mean Platelet Volume 11.3 FL (9.6-12.0); Monocytes # 0.9 10*3/uL (0.11-0.8); Monocytes % 5.5 % (1.7-12.7); NRBC # 0.02 10*3/uL; Neutrophils # 14.9 10*3/uL (1.4-7.4); Neutrophils % 86.8 % (38.7-73.9); Platelet Count 321 T/CUMM (130-400); Red Blood Count 4.41 MC/CUMM (3.8-5.5); White Blood Count 17.1 T/CUMM (4-12)
[2017-06-30] MEDS: ENOXAPARIN 40 MG/0.4 ML SYRINGE SUBCUT SCH (07:42)
[2017-06-30 07:53] LABS: Albumin 2.2 G/DL (3.4-5.0); Bilirubin,Total 0.4 MG/DL (0.2-1.0); Calcium 8.3 MG/DL (8.5-10.1); Osmolality,Calculated 290.5 MOS/KG (273-304); Total Protein 5.5 G/DL (6.4-8.3)
--- NOTE | 2017-06-30 08:27 | Hospitalist Progress Note ---
Assessment and Plan - Time spent with patient Time spent with patient: Greater than 30 minutes (1) UTI (urinary tract infection) Status: Acute Current Visit: No Qualifiers: Urinary tract infection type: site unspecified Hematuria presence: without hematuria Qualified Code(s): N39.0 - Urinary tract infection, site not specified (2) Dementia Status: Chronic Current Visit: Yes Qualifiers: Dementia type: unspecified type (3) Change in mental status Status: Acute Current Visit: No (4) Diabetes mellitus type 2 in nonobese Status: Chronic Current Visit: No (5) Hypertension Status: Acute Current Visit: No Qualifiers: Hypertension type: essential hypertension Qualified Code(s): I10 - Essential (primary) hypertension (6) COPD (chronic obstructive pulmonary disease) Status: Acute Current Visit: Yes (7) Aspiration pneumonia Status: Acute Current Visit: Yes Qualifiers: Aspiration pneumonia type: unspecified Laterality: right Lung location: unspecified part of lung Qualified Code(s): J69.0 - Pneumonitis due to inhalation of food and vomit (8) Acute renal failure Status: Acute Assessment and plan: She is currently on Levaquin and Zosyn, switch to oral antibiotic before discharge Continue gentle IV fluid hydration, monitor for fluid overload. Change to prednisone 20 mg daily She passed swallowing evaluation at bedside, tolerating soft diet DVT prophylaxis Current Visit: Yes Hospitalist: Subjective Interval history: She had no new problems overnight Still has leukocytosis, blood glucose is still elevated, we are discontinuing Solu-Medrol and switch him to oral prednisone today She is bradycardic, however maintains her blood pressures. Heart rate in the 40s bpm Exam - Constitutional Vitals: Period Temp Pulse Resp BP Sys/Rueda Pulse Ox Last 24 Hr 97.1 F-97.7 F 44-61 18-20 144-188/56-81 91-100 Exam: In no obvious distress - Respiratory Respiratory exam: Present: other (Scattered basilar rales) - Cardiovascular Cardiovascular exam: Present: regular rate and rhythm. Absent: JVD - GI/Abdominal GI/Abdominal exam: Present: soft. Absent: tenderness - Extremities Exam Extremities exam: Absent: edema - Neurological Exam Neurological exam: Present: alert. Verbally responsive, oriented in place. - Psychiatric Psychiatric exam: Present: normal affect Results - Labs CBC & BMP: 06/30/17 06:25 06/30/17 06:25 Lab Results: I have reviewed the past 24 hour labs
[2017-06-30] MEDS ORDERED: methylPREDNISolone SOD SUC 40 MG/1 ML VIAL IV SCH (08:30)
[2017-06-30] MEDS: INSULIN REGULAR 100 UNIT/ML SUBCUT SCH ×4 (08:50→21:08)
[2017-06-30] MEDS: LEVOFLOXACIN INJ 250 MG in PREMIX 1 EACH IV SCH (08:50)
[2017-06-30] MEDS: PANTOPRAZOLE 40 MG TABLET PO SCH (08:53)
[2017-06-30] MEDS: predniSONE 20 MG TABLET PO SCH (08:53)
[2017-06-30] MEDS: guaiFENesin 200 MG/10 ML UDCUP PO PRN (21:08)
[2017-07-01] MEDS: ALBUTEROL/IPRATROPIUM 3 ML NEB RESP TX SCH ×4 (00:51→19:50)
[2017-07-01] MEDS ORDERED: ZINC OXIDE PASTE 113 GM TUBE TOP PRN (01:42)
[2017-07-01 06:49] LABS: Basophils % 0.1 % (0.0-0.8); Eosinophils # 0.1 10*3/uL (0.0-0.87); Eosinophils % 0.4 % (0.00-10.9); Hematocrit 35.7 VOL% (35.7-47.0); Hemoglobin 11.8 GM/DL (12.0-16.0); Immature Granulocytes % 1.6 %; Immature Granulocytes Absolute 0.29 #; Lymphocytes # 2.7 10*3/uL (1.4-4.0); Lymphocytes % 14.4 % (21.3-54.2); Mean Corpuscular HGB Conc 33.1 GM/DL (32-36); Mean Corpuscular Hemoglobin 28 PG (27-34); Mean Corpuscular Volume 85.2 FL (87-102); Mean Platelet Volume 11.4 FL (9.6-12.0); Monocytes % 10.9 % (1.7-12.7); Neutrophils # 13.5 10*3/uL (1.4-7.4); Neutrophils % 72.6 % (38.7-73.9); Platelet Count 332 T/CUMM (130-400); Red Blood Count 4.19 MC/CUMM (3.8-5.5); Red Cell Distribution Width 13.1 % (9.3-17.3); White Blood Count 18.5 T/CUMM (4-12)
[2017-07-01] MEDS: PIPERACILLIN/TAZOBACTAM 3,375 MG in SODIUM CHLORIDE 0.9% 100 ML IV SCH (06:59)
[2017-07-01] MEDS: ENOXAPARIN 40 MG/0.4 ML SYRINGE SUBCUT SCH (06:59)
[2017-07-01 07:18] LABS: Bilirubin,Total 0.8 MG/DL (0.2-1.0); Osmolality,Calculated 289.4 MOS/KG (273-304); Potassium 3.5 MMOL/L (3.5-5.1); Total Protein 4.8 G/DL (6.4-8.3)
[2017-07-01] MEDS: INSULIN REGULAR 100 UNIT/ML SUBCUT SCH ×4 (08:42→21:41)
[2017-07-01] MEDS: predniSONE 20 MG TABLET PO SCH (08:44)
[2017-07-01] MEDS: PANTOPRAZOLE 40 MG TABLET PO SCH (08:44)
--- NOTE | 2017-07-01 09:21 | Hospitalist Progress Note ---
Assessment and Plan - Time spent with patient Time spent with patient: Greater than 30 minutes (1) UTI (urinary tract infection) Status: Acute Current Visit: No Qualifiers: Urinary tract infection type: site unspecified Hematuria presence: without hematuria Qualified Code(s): N39.0 - Urinary tract infection, site not specified (2) Dementia Status: Chronic Current Visit: Yes Qualifiers: Dementia type: unspecified type (3) Change in mental status Status: Acute Current Visit: No (4) Diabetes mellitus type 2 in nonobese Status: Chronic Current Visit: No (5) Hypertension Status: Acute Current Visit: No Qualifiers: Hypertension type: essential hypertension Qualified Code(s): I10 - Essential (primary) hypertension (6) COPD (chronic obstructive pulmonary disease) Status: Acute Current Visit: Yes (7) Aspiration pneumonia Status: Acute Current Visit: Yes Qualifiers: Aspiration pneumonia type: unspecified Laterality: right Lung location: unspecified part of lung Qualified Code(s): J69.0 - Pneumonitis due to inhalation of food and vomit (8) Acute renal failure Status: Acute Assessment and plan: Continue on Levaquin and discontinue Zosyn, switch to oral Discontinue iv fluid hydration since her oral intake has improved Continue prednisone 20 mg daily, decrease to 10 mg daily from tomorrow She passed swallowing evaluation at bedside, tolerating soft diet DVT prophylaxis She is stable enough for discharge back to the facility tomorrow. Current Visit: Yes Hospitalist: Subjective Interval history: Elderly woman with history of dementia who was admitted for suspected aspiration pneumonia. She has done well on antibiotics and respiratory therapy. She was in restraints because of history of agitation and altered mental status , she however is much calmer. We held her discharge yesterday because she had been in restraints. She has been off restraint the last 24 hours and should be able to return to her facility likely tomorrow. No fever despite leukocytosis. Blood sugars still slightly elevated but much better since we tapered her steroids. We will also place her on basal insulin for better control. Exam - Constitutional Vitals: Period Temp Pulse Resp BP Sys/Rueda Pulse Ox Last 24 Hr 97.3 F-98.7 F 61-77 18-20 142-166/64-86 89-98 Exam: In no obvious distress - Respiratory Respiratory exam: Present: other (Scattered basilar rales) - Cardiovascular Cardiovascular exam: Present: regular rate and rhythm. Absent: JVD - GI/Abdominal GI/Abdominal exam: Present: soft. Absent: tenderness - Extremities Exam Extremities exam: Absent: edema - Neurological Exam Neurological exam: Present: alert. Verbally responsive, oriented in place. - Psychiatric Psychiatric exam: Present: normal affect Results - Labs CBC & BMP: 07/01/17 05:50 07/01/17 05:50 Lab Results: I have reviewed the past 24 hour labs
[2017-07-01] MEDS: LEVOFLOXACIN INJ 250 MG in PREMIX 1 EACH IV SCH (11:08)
[2017-07-01] MEDS: LEVOFLOXACIN 250 MG TABLET PO SCH (11:32)
[2017-07-01] MEDS ORDERED: INSULIN GLARGINE 100 UNIT/ML SUBCUT SCH (21:00)
[2017-07-01] MEDS: guaiFENesin 200 MG/10 ML UDCUP PO PRN (22:42)
[2017-07-02] MEDS: ALBUTEROL/IPRATROPIUM 3 ML NEB RESP TX SCH ×3 (00:23→12:43)
[2017-07-02] MEDS: PANTOPRAZOLE 40 MG TABLET PO SCH (08:54)
[2017-07-02] MEDS: guaiFENesin 200 MG/10 ML UDCUP PO PRN (08:54)
[2017-07-02] MEDS: ENOXAPARIN 40 MG/0.4 ML SYRINGE SUBCUT SCH (08:54)
[2017-07-02] MEDS: predniSONE 20 MG TABLET PO SCH (08:54)
[2017-07-02] MEDS: LEVOFLOXACIN 250 MG TABLET PO SCH (08:54)
[2017-07-02] MEDS: INSULIN REGULAR 100 UNIT/ML SUBCUT SCH ×2 (08:55→13:46)
[2017-07-02 09:23] VITALS: BP 165/84
--- NOTE | 2017-07-02 10:07 | Discharge Summary ---
Discharge Plan - Discharge Medications New Levofloxacin Tab [Levaquin Tab] 500 mg PO DAILY #10 tablet Furosemide Tab [Lasix Tab] 20 mg PO BID DIURETIC #60 tablet Potassium Chloride Cap/Tab [K Dur] 20 meq PO DAILY #30 tablet No Action Levothyroxine Tab [Synthroid Tab] 100 mcg PO DAILY Magnesium Hydroxide Susp [Milk of Magnesia] 2 teaspoon PO Q8H PRN PRN Reason: Constipation Losartan Potassium 50 mg PO DAILY Atorvastatin Calcium 20 mg PO BEDTIME Carvedilol [Coreg] 6.25 mg PO BID tablet Magnesium Chloride [Slow Mag] 64 mg PO BID #28 tablet metFORMIN XR [Glucophage Xr] 500 mg PO DAILY W/BREAKFAST #30 tablet HYDROcodone/ACETAMIN 5-325 [[place] 5-325] 1 tablet PO Q6H PRN #10 tablet PRN Reason: Pain Donepezil [Aricept] 10 mg PO BEDTIME Melatonin/Pyridoxine HCl (B6) [Melatonin 3 mg Tablet] 9 each PO BEDTIME Multivitamin [Multivitamins] 1 each PO DAILY clonazePAM TAB [KlonoPIN] 0.5 mg PO BID Insulin Aspart [NovoLOG] See Protocol SUBCUT ACHS PRN PRN Reason: Glucose Management lamoTRIgine [LaMICtal Tab] 25 mg PO DAILY Mirtazapine [Remeron] 15 mg PO BEDTIME Escitalopram [Lexapro] 10 mg PO DAILY LORazepam TAB [Ativan Tab] 0.5 mg PO Q6H PRN PRN Reason: Anxiety Acetaminophen Tab [Tylenol Tab] 500 mg PO Q4H PRN PRN Reason: Pain LORazepam TAB [Ativan Tab] 0.5 mg PO Q6H PRN #0 tablet PRN Reason: Anxiety - Follow Up or Referral - Forms/Instructions Exam - Constitutional Vitals: Period Temp Pulse Resp BP Sys/Rueda Pulse Ox Last 24 Hr 96.0 F-98.4 F 45-72 15-20 130-183/56-84 89-99 Discharge Results Procedures and tests throughout hospitalization: Pending Orders 06/28/17 13:15 Procalcitonin, S Routine Labs on day of discharge: Labs from last 24 hours 07/01/17 07/01/17 07/01/17 20:26 17:49 12:11 POC Glucose 288 H 273 H 266 H DS: Provider Date of admission: 06/27/17 13:15 Primary care physician: Jesús Dacosta Attending physician on admission: Sivakumar Forrester MD Consults: 06/27/17 07:27 Consult to Case Mgmt/Social Srvs [CONS] Routine Reason for Case Mgmt/Social Srvs: Discharge Planning 06/28/17 13:14 Consult to Pharmacy [CONS] Routine Reason for Pharmacy Consult: Dose/Manage Vancomycin Discharging clinician: Shannon Almodovar MD
--- NOTE | 2017-07-02 10:53 | Discharge Summary ---
Hospital Course - Hospital Course Hospital Course: Ms Mcgraw 81 y/o w/PMHx HTN, dementia, dyslipidemia presented to the ED on from [facility] for further evaluation hypotension and altered mental status. In ED: WBC 12.6, H&H stable, BUN 68, Creatinine 1.40, Troponin 0.229, BNP 827, Urinalysis positive for infection, CXR: suspicious for pneumonia, EKG: sinus philip w/ HR 51. Hospital Medicine consulted for admission and further treatment of aspiration pneumonia, UTI, acute renal failure, COPD exacerbation, and fall precautions related to dementia. Started IV hydration for dehydration and related acute renal injury, solumedrol, antibiotics, breathing treatments for aspiration pneumonia COPD, urine culture obtained then antibiotics started for UTI. Urine Culture final for Klebsiella pneumonia and covered by antibiotics. Blood culture final was negative. Today 07/02/17 patient is stable and improving. She will be discharged back to [facility] facility. She will need to continue antibiotic coverage for a few days. Further recommendations of discharge planning per Dr Almodovar to follow. Discharge Plan - Discharge Medications New Levofloxacin Tab [Levaquin Tab] 500 mg PO DAILY #10 tablet Furosemide Tab [Lasix Tab] 20 mg PO BID DIURETIC #60 tablet Potassium Chloride Cap/Tab [K Dur] 20 meq PO DAILY #30 tablet No Action Levothyroxine Tab [Synthroid Tab] 100 mcg PO DAILY Magnesium Hydroxide Susp [Milk of Magnesia] 2 teaspoon PO Q8H PRN PRN Reason: Constipation Losartan Potassium 50 mg PO DAILY Atorvastatin Calcium 20 mg PO BEDTIME Carvedilol [Coreg] 6.25 mg PO BID tablet Magnesium Chloride [Slow Mag] 64 mg PO BID #28 tablet metFORMIN XR [Glucophage Xr] 500 mg PO DAILY W/BREAKFAST #30 tablet HYDROcodone/ACETAMIN 5-325 [[place] 5-325] 1 tablet PO Q6H PRN #10 tablet PRN Reason: Pain Donepezil [Aricept] 10 mg PO BEDTIME Melatonin/Pyridoxine HCl (B6) [Melatonin 3 mg Tablet] 9 each PO BEDTIME Multivitamin [Multivitamins] 1 each PO DAILY clonazePAM TAB [KlonoPIN] 0.5 mg PO BID Insulin Aspart [NovoLOG] See Protocol SUBCUT ACHS PRN PRN Reason: Glucose Management lamoTRIgine [LaMICtal Tab] 25 mg PO DAILY Mirtazapine [Remeron] 15 mg PO BEDTIME Escitalopram [Lexapro] 10 mg PO DAILY LORazepam TAB [Ativan Tab] 0.5 mg PO Q6H PRN PRN Reason: Anxiety Acetaminophen Tab [Tylenol Tab] 500 mg PO Q4H PRN PRN Reason: Pain LORazepam TAB [Ativan Tab] 0.5 mg PO Q6H PRN #0 tablet PRN Reason: Anxiety - Follow Up or Referral - Forms/Instructions Exam - Constitutional Vitals: Period Temp Pulse Resp BP Sys/Rueda Pulse Ox Last 24 Hr 96.0 F-98.4 F 45-72 15-20 130-183/56-84 89-99 Discharge Results Procedures and tests throughout hospitalization: Pending Orders 06/28/17 13:15 Procalcitonin, S Routine Labs on day of discharge: Labs from last 24 hours 07/01/17 07/01/17 07/01/17 20:26 17:49 12:11 POC Glucose 288 H 273 H 266 H DS: Provider Date of admission: 06/27/17 13:15 Primary care physician: Jesús Dacosta Attending physician on admission: Sivakumar Forrester MD Consults: 06/27/17 07:27 Consult to Case Mgmt/Social Srvs [CONS] Routine Reason for Case Mgmt/Social Srvs: Discharge Planning 06/28/17 13:14 Consult to Pharmacy [CONS] Routine Reason for Pharmacy Consult: Dose/Manage Vancomycin Discharging clinician: Valery Byrd NP
--- NOTE | 2017-07-02 10:53 | Discharge Summary ---
Hospital Course - Hospital Course Hospital Course: Ms Mcgraw 81 y/o w/PMHx HTN, dementia, dyslipidemia presented to the ED on from [facility] for further evaluation hypotension and altered mental status. In ED: WBC 12.6, H&H stable, BUN 68, Creatinine 1.40, Troponin 0.229, BNP 827, Urinalysis positive for infection, CXR: suspicious for pneumonia, EKG: sinus philip w/ HR 51. Hospital Medicine consulted for admission and further treatment of aspiration pneumonia, UTI, acute renal failure, COPD exacerbation, and fall precautions related to dementia. Started IV hydration for dehydration and related acute renal injury, solumedrol, antibiotics, breathing treatments for aspiration pneumonia COPD, urine culture obtained then antibiotics started for UTI. Urine Culture final for Klebsiella pneumonia and covered by antibiotics. Blood culture final was negative. Today 07/02/17 patient is stable and improving. She will be discharged back to [facility] facility. She will need to continue antibiotic coverage for a few days. Further recommendations of discharge planning per Dr Almodovar to follow. I have seen and examined Mrs Mcgraw and agree with the note above. She is doing much better after treatment and is ready to return to the detention today. She will complete a course of levaquin and go home on lasix and potassium. She will resume her oral hypoglycemics and SSI at discharge. Total time spent on discharge is 40 minutes with documentation, medicine reconciliation, discharge planning. Diagnosis - Discharge Diagnosis (1) Hypertension Status: Chronic (2) COPD (chronic obstructive pulmonary disease) Status: Chronic (3) UTI (urinary tract infection) Status: Resolved (4) Aspiration pneumonia Status: Resolved Specialty Discharge - Follow Up or Referrals Follow up with: Your, PCP [Other] (1 week) Discharge Plan - Discharge Data Disposition: Disch/Xfer to Snf Condition at Discharge: Stable Discharge Diet: regular diet Activity: resume usual activities as tolerated - Discharge Medications New Levofloxacin Tab [Levaquin Tab] 500 mg PO DAILY #10 tablet Furosemide Tab [Lasix Tab] 20 mg PO BID DIURETIC #60 tablet Potassium Chloride Cap/Tab [K Dur] 20 meq PO DAILY #30 tablet predniSONE TAB [PredniSONE] 20 mg PO DAILY #6 tablet Continue Levothyroxine Tab [Synthroid Tab] 100 mcg PO DAILY Magnesium Hydroxide Susp [Milk of Magnesia] 2 teaspoon PO Q8H PRN PRN Reason: Constipation Losartan Potassium 50 mg PO DAILY Atorvastatin Calcium 20 mg PO BEDTIME Carvedilol [Coreg] 6.25 mg PO BID tablet Magnesium Chloride [Slow Mag] 64 mg PO BID #28 tablet metFORMIN XR [Glucophage Xr] 500 mg PO DAILY W/BREAKFAST #30 tablet Donepezil [Aricept] 10 mg PO BEDTIME Melatonin/Pyridoxine HCl (B6) [Melatonin 3 mg Tablet] 9 each PO BEDTIME Insulin Aspart [NovoLOG] See Protocol SUBCUT ACHS PRN PRN Reason: Glucose Management lamoTRIgine [LaMICtal Tab] 25 mg PO DAILY Mirtazapine [Remeron] 15 mg PO BEDTIME Escitalopram [Lexapro] 10 mg PO DAILY Acetaminophen Tab [Tylenol Tab] 500 mg PO Q4H PRN PRN Reason: Pain Changed clonazePAM TAB [KlonoPIN] 0.5 mg PO BID PRN #0 PRN Reason: Agitation Discontinued HYDROcodone/ACETAMIN 5-325 [[place] 5-325] 1 tablet PO Q6H PRN #10 tablet PRN Reason: Pain Multivitamin [Multivitamins] 1 each PO DAILY LORazepam TAB [Ativan Tab] 0.5 mg PO Q6H PRN PRN Reason: Anxiety LORazepam TAB [Ativan Tab] 0.5 mg PO Q6H PRN #0 tablet PRN Reason: Anxiety - Follow Up or Referral Follow Up: Your, PCP [Other] (1 week) - Forms/Instructions Instructions: Urinary Tract Infection in Women (DC), Community-acquired Pneumonia (DC) Exam - Constitutional Vitals: Period Temp Pulse Resp BP Sys/Rueda Pulse Ox Last 24 Hr 96.0 F-98.4 F 45-72 15-20 130-183/56-84 89-99 General appearance: normal weight, no acute distress - Eye Eye exam: Present: EOMI. Absent: scleral icterus - Respiratory Respiratory exam: Present: clear to auscultation bilaterally - Cardiovascular Cardiovascular exam: Present: regular rate and rhythm - GI/Abdominal GI/Abdominal exam: Present: normal bowel sounds, soft - Extremities Exam Extremities exam: Absent: edema Discharge Results Procedures and tests throughout hospitalization: Pending Orders 06/28/17 13:15 Procalcitonin, S Routine Labs on day of discharge: Labs from last 24 hours 09/07/01/17 07/01/17 20:26 17:49 12:11 POC Glucose 288 H 273 H 266 H DS: Provider Date of admission: 06/27/17 13:15 Primary care physician: Jesús Dacosta Attending physician on admission: Sivakumar Forrester MD Consults: 06/27/17 07:27 Consult to Case Mgmt/Social Srvs [CONS] Routine Reason for Case Mgmt/Social Srvs: Discharge Planning 06/28/17 13:14 Consult to Pharmacy [CONS] Routine Reason for Pharmacy Consult: Dose/Manage Vancomycin Discharging clinician: Shannon Almodovar MD
== END 2017-07-02 14:00 | DRG 177 ==
LOC: EDBD → EDUNIT# → N.ED 00:32 → N.5E 00:32 → SUATTDRO 04:23 → N.5E 05:45 → SUATTDRO 13:15 → N.5E 06-30 17:15
PROVIDERS: ADMIT Family Medicine; ATTEND Internal Medicine

== ENCOUNTER 2017-12-30 20:22 | Inpatient (IN) ==
[2017-12-30] MEDS ORDERED: SODIUM CHLORIDE 0.9% 1,000 ML IV STA (20:58)
[2017-12-30 22:43] LABS: Basophils % 0.2 % (0.0-0.8); Eosinophils % 0.3 % (0.00-10.9); Hematocrit 33.8 VOL% (35.7-47.0); Hemoglobin 10.9 GM/DL (12.0-16.0); Immature Granulocytes % 0.5 %; Immature Granulocytes Absolute 0.07 #; Lymphocytes # 1.8 10*3/uL (1.4-4.0); Lymphocytes % 12.7 % (21.3-54.2); Mean Corpuscular HGB Conc 32.2 GM/DL (32-36); Mean Corpuscular Hemoglobin 30 PG (27-34); Mean Corpuscular Volume 91.4 FL (87-102); Mean Platelet Volume 11.3 FL (9.6-12.0); Monocytes # 1.7 10*3/uL (0.11-0.8); Monocytes % 11.8 % (1.7-12.7); Neutrophils # 10.5 10*3/uL (1.4-7.4); Neutrophils % 74.5 % (38.7-73.9); Platelet Count 194 T/CUMM (130-400); Red Cell Distribution Width 13.7 % (9.3-17.3); White Blood Count 14.1 T/CUMM (4-12)
[2017-12-30 22:50] LABS: INR 1.1; PT Patient Result 11.3 SECS
[2017-12-30 23:13] LABS: Albumin 3.2 G/DL (3.4-5.0); Bilirubin,Total 0.6 MG/DL (0.2-1.0); Calcium 8.3 MG/DL (8.5-10.1); Osmolality,Calculated 293.7 MOS/KG (273-304); Potassium 4.5 MMOL/L (3.5-5.1); Total Protein 6.7 G/DL (6.4-8.3)
[2017-12-30 23:14] LABS: Troponin I Only 0.091 NG/ML (0.00-0.045)
[2017-12-30 23:29] LABS: Apearance,Urine CLOUDY (Clear); Bacteria,Urine Many /HPF (Few); Bilirubin,Urine Negative (Negative); Blood, Urine Negative (Negative); Glucose,Urine (UA) Negative (Negative); Hyaline Casts,Urine 85 /LPF (0-3); Ketones,Urine Negative (Negative); Mucus,Urine Occasional /LPF (Occasional); Nitrite,Urine Negative (Negative); Protein,Urine Negative; RBC,Urine 5 /HPF (0-4); Squamous Epithelial Cell,Urine Occasional /HPF (0-10); Urine Color Amber (Yellow); Urine Specific Gravity 1.013 (1.001-1.035); Urine Urobilinogen < 2.0 EU/DL (0.2-1.0); WBC,Urine 97 /HPF (0-6)
[2017-12-30 23:36] LABS: Barbiturates Screen,Urine Negative (Negative); Benzodiazepines Screen,Urine Negative (Negative); Cannabinoid Screen,Urine Negative (Negative); Opiate Screen,Urine Positive (Negative); Phencyclidine Screen,Urine Negative (Negative)
[2017-12-30] MEDS ORDERED: cefTRIAXone 1,000 MG in SODIUM CHLORIDE 0.9% 100 ML IV STA (23:38)
[2017-12-30] MEDS ORDERED: cefTRIAXone 1,000 MG VIAL ONE (23:48)
[2017-12-31] MEDS ORDERED: ONDANSETRON 4 MG/2 ML VIAL IV PRN (00:47)
[2017-12-31] MEDS ORDERED: ACETAMINOPHEN 325 MG TABLET PO PRN (00:47)
[2017-12-31] MEDS ORDERED: GLUCAGON 1 MG VIAL IM PRN (00:53)
[2017-12-31] MEDS ORDERED: DEXTROSE 50% 25 GM/50 ML VIAL IV PRN (00:53)
[2017-12-31] MEDS: SODIUM CHLORIDE 0.9% 1,000 ML IV SCH ×2 (02:20→10:47)
[2017-12-31] MEDS: INSULIN REGULAR 100 UNIT/ML SUBCUT SCH ×2 (08:17→12:27)
[2017-12-31] MEDS ORDERED: PANTOPRAZOLE 40 MG TABLET PO SCH (09:00)
[2017-12-31] MEDS ORDERED: ENOXAPARIN 30 MG/0.3 ML SYRINGE SUBCUT SCH (09:00)
[2017-12-31 11:45] VITALS: BP 104/64
[2017-12-31] MEDS ORDERED: cefTRIAXone 1,000 MG in SYRINGE 1 EACH IV SCH (23:30)
== END 2017-12-31 15:10 | DRG 690 ==
LOC: EDUNIT# → EDBD → N.ED 20:22 → N.EDINP 12-31 00:47 → N.5E 12-31 01:49
PROVIDERS: ADMIT Internal Medicine; ATTEND Internal Medicine

== ENCOUNTER 2018-07-19 19:27 | Inpatient (IN) ==
[2018-07-19] MEDS ORDERED: SODIUM CHLORIDE 0.9% 500 ML IV STA (19:58)
[2018-07-19] MEDS ORDERED: ONDANSETRON 4 MG/2 ML VIAL IV STA (19:58)
[2018-07-19] MEDS ORDERED: MORPHINE 4 MG/1 ML VIAL IV STA (19:58)
[2018-07-19 20:10] LABS: Basophils # 0.1 10*3/uL (0.0-0.2); Basophils % 0.6 % (0.0-0.8); Eosinophils # 0.6 10*3/uL (0.0-0.87); Eosinophils % 4.2 % (0.00-10.9); Hematocrit 37.2 VOL% (35.7-47.0); Immature Granulocytes % 0.5 %; Immature Granulocytes Absolute 0.07 #; Lymphocytes # 1.7 10*3/uL (1.4-4.0); Lymphocytes % 11.7 % (21.3-54.2); Mean Corpuscular HGB Conc 32.3 GM/DL (32-36); Mean Corpuscular Hemoglobin 30 PG (27-34); Mean Corpuscular Volume 93.7 FL (87-102); Mean Platelet Volume 10.9 FL (9.6-12.0); Monocytes # 1.1 10*3/uL (0.11-0.8); Monocytes % 7.5 % (1.7-12.7); Neutrophils # 11.1 10*3/uL (1.4-7.4); Neutrophils % 75.5 % (38.7-73.9); Platelet Count 236 T/CUMM (130-400); Red Blood Count 3.97 MC/CUMM (3.8-5.5); Red Cell Distribution Width 13.3 % (9.3-17.3); White Blood Count 14.7 T/CUMM (4-12)
[2018-07-19 20:16] LABS: Apearance,Urine Slightly Hazy (Clear); Bacteria,Urine Few /HPF (Few); Bilirubin,Urine Negative (Negative); Blood, Urine Negative (Negative); Glucose,Urine (UA) Negative (Negative); Hyaline Casts,Urine 13 /LPF (0-3); Ketones,Urine Negative (Negative); Mucus,Urine Occasional /LPF (Occasional); Nitrite,Urine Negative (Negative); PT Patient Result 10.8 SECS; Protein,Urine 30 MG/DL; RBC,Urine 1 /HPF (0-4); Squamous Epithelial Cell,Urine Occasional /HPF (0-10); Urine Color Yellow (Yellow); Urine Specific Gravity 1.012 (1.001-1.035); Urine Urobilinogen < 2.0 EU/DL (0.2-1.0); WBC,Urine 47 /HPF (0-6)
[2018-07-19] MEDS ORDERED: FUROSEMIDE 40 MG/4 ML VIAL IV STA (20:25)
[2018-07-19] MEDS ORDERED: cefTRIAXone 1,000 MG in SODIUM CHLORIDE 0.9% 100 ML IV STA (20:25)
[2018-07-19 21:49] LABS: Bilirubin,Total 0.6 MG/DL (0.2-1.0); Calcium 8.4 MG/DL (8.5-10.1); Total Protein 7.2 G/DL (6.4-8.3)
[2018-07-20] MEDS ORDERED: MORPHINE 4 MG/1 ML VIAL IV PRN (00:24)
[2018-07-20] MEDS ORDERED: ONDANSETRON 4 MG/2 ML VIAL IV PRN (00:25)
[2018-07-20] MEDS: SODIUM CHLORIDE 0.45% 1,000 ML IV SCH ×2 (01:42→23:44)
[2018-07-20] MEDS: LEVOTHYROXINE 100 MCG TABLET PO SCH (05:21)
[2018-07-20] MEDS ORDERED: INFLUENZA VIRUS VACCINE 0.5 ML SYRINGE IM ONE (09:00)
[2018-07-20] MEDS: CARBOXYMETHYLCELLULOSE 1% OPH SOLN BOTH EYES SCH ×2 (09:19→22:05)
[2018-07-20] MEDS ORDERED: ceFAZolin 1,000 MG VIAL ONE (16:49)
[2018-07-20] MEDS: CALCIUM (CARBONATE)/VITAMIN D 600 MG-400 UNIT TABLET PO SCH (17:40)
[2018-07-20] MEDS: CARVEDILOL 6.25 MG TABLET PO SCH (17:41)
[2018-07-20] MEDS: LOSARTAN 25 MG TABLET PO SCH (17:42)
[2018-07-20] MEDS: ESCITALOPRAM 10 MG TABLET PO SCH (17:42)
[2018-07-20] MEDS ORDERED: PROPOFOL 200 MG/20 ML VIAL IV ONE (18:27)
[2018-07-20] MEDS ORDERED: ONDANSETRON 4 MG/2 ML VIAL ONE (18:28)
[2018-07-20] MEDS ORDERED: SEVOFLURANE 1 UNIT/15 MINUTE INH ONE (18:28)
[2018-07-20] MEDS ORDERED: TRANEXAMIC ACID 1,000 MG/10 ML VIAL ONE (18:28)
[2018-07-20] MEDS ORDERED: GLYCOPYRROLATE 0.4 MG/2 ML VIAL ONE (18:28)
[2018-07-20] MEDS ORDERED: PHENYLEPHRINE DRIP 20 MG/250 ML PREMIX IV ONE (18:28)
[2018-07-20] MEDS ORDERED: ACETAMINOPHEN 1,000 MG/100 ML VIAL IV ONE (18:28)
[2018-07-20] MEDS ORDERED: SUCCINYLCHOLINE 200 MG/10 ML VIAL ONE (18:29)
[2018-07-20] MEDS ORDERED: fentaNYL 100 MCG/2 ML VIAL ONE (18:29)
[2018-07-20] MEDS: cefTRIAXone 1,000 MG in SYRINGE 1 EACH IV SCH (22:04)
[2018-07-20] MEDS: MELATONIN 3 MG TABLET PO SCH (22:06)
[2018-07-20] MEDS: APIXABAN 2.5 MG TABLET PO SCH (22:06)
[2018-07-20] MEDS: ATORVASTATIN 20 MG TABLET PO SCH (22:06)
[2018-07-21] MEDS: LEVOTHYROXINE 100 MCG TABLET PO SCH (05:46)
[2018-07-21] MEDS: CARVEDILOL 6.25 MG TABLET PO SCH ×2 (07:38→16:28)
[2018-07-21] MEDS: CALCIUM (CARBONATE)/VITAMIN D 600 MG-400 UNIT TABLET PO SCH (07:38)
[2018-07-21] MEDS: diphenhydrAMINE 50 MG/1 ML VIAL IV PRN ×3 (09:04→21:46)
[2018-07-21] MEDS: LOSARTAN 25 MG TABLET PO SCH (09:06)
[2018-07-21] MEDS: ESCITALOPRAM 10 MG TABLET PO SCH (09:07)
[2018-07-21] MEDS: APIXABAN 2.5 MG TABLET PO SCH ×2 (09:07→21:31)
[2018-07-21] MEDS: CARBOXYMETHYLCELLULOSE 1% OPH SOLN BOTH EYES SCH ×2 (09:10→21:31)
[2018-07-21 09:33] LABS: Basophils # 0.1 10*3/uL (0.0-0.2); Basophils % 0.6 % (0.0-0.8); Eosinophils # 0.8 10*3/uL (0.0-0.87); Eosinophils % 7.2 % (0.00-10.9); Hematocrit 35.9 VOL% (35.7-47.0); Hemoglobin 11.1 GM/DL (12.0-16.0); Immature Granulocytes % 0.4 %; Immature Granulocytes Absolute 0.04 #; Lymphocytes # 1.2 10*3/uL (1.4-4.0); Lymphocytes % 11.4 % (21.3-54.2); Mean Corpuscular HGB Conc 30.9 GM/DL (32-36); Mean Corpuscular Hemoglobin 30 PG (27-34); Mean Corpuscular Volume 96.5 FL (87-102); Mean Platelet Volume 11.3 FL (9.6-12.0); Monocytes % 9.4 % (1.7-12.7); Neutrophils # 7.6 10*3/uL (1.4-7.4); Platelet Count 183 T/CUMM (130-400); Red Blood Count 3.72 MC/CUMM (3.8-5.5); Red Cell Distribution Width 13.6 % (9.3-17.3); White Blood Count 10.8 T/CUMM (4-12)
[2018-07-21 09:41] LABS: Calcium 7.6 MG/DL (8.5-10.1); Potassium 4.4 MMOL/L (3.5-5.1)
[2018-07-21] MEDS: SODIUM CHLORIDE 0.45% 1,000 ML IV SCH ×2 (13:10)
[2018-07-21] MEDS: ATORVASTATIN 20 MG TABLET PO SCH (21:31)
[2018-07-21] MEDS: MELATONIN 3 MG TABLET PO SCH (21:31)
[2018-07-21] MEDS: cefTRIAXone 1,000 MG in SYRINGE 1 EACH IV SCH (21:47)
[2018-07-22 05:16] LABS: Basophils # 0.1 10*3/uL (0.0-0.2); Basophils % 0.5 % (0.0-0.8); Eosinophils # 0.7 10*3/uL (0.0-0.87); Eosinophils % 6.9 % (0.00-10.9); Hematocrit 32.1 VOL% (35.7-47.0); Immature Granulocytes % 0.4 %; Immature Granulocytes Absolute 0.04 #; Lymphocytes # 1.5 10*3/uL (1.4-4.0); Lymphocytes % 14.4 % (21.3-54.2); Mean Corpuscular HGB Conc 31.2 GM/DL (32-36); Mean Corpuscular Hemoglobin 30 PG (27-34); Mean Corpuscular Volume 94.7 FL (87-102); Mean Platelet Volume 11.1 FL (9.6-12.0); Monocytes # 1.2 10*3/uL (0.11-0.8); Monocytes % 11.4 % (1.7-12.7); Neutrophils # 6.8 10*3/uL (1.4-7.4); Neutrophils % 66.4 % (38.7-73.9); Platelet Count 185 T/CUMM (130-400); Red Blood Count 3.39 MC/CUMM (3.8-5.5); Red Cell Distribution Width 13.4 % (9.3-17.3); White Blood Count 10.3 T/CUMM (4-12)
[2018-07-22 05:33] LABS: Calcium 7.3 MG/DL (8.5-10.1); Potassium 4.1 MMOL/L (3.5-5.1)
[2018-07-22] MEDS: LEVOTHYROXINE 100 MCG TABLET PO SCH (05:38)
[2018-07-22] MEDS: SODIUM CHLORIDE 0.45% 1,000 ML IV SCH (07:39)
[2018-07-22] MEDS ORDERED: CIPROFLOXACIN INJ 400 MG in PREMIX 1 EACH IV SCH (08:00)
[2018-07-22 09:44] LABS: Albumin 2.3 G/DL (3.4-5.0); Bilirubin,Total 0.5 MG/DL (0.2-1.0); Calcium 7.8 MG/DL (8.5-10.1); Osmolality,Calculated 276.2 MOS/KG (273-304); Total Protein 6.1 G/DL (6.4-8.3)
[2018-07-22] MEDS: APIXABAN 2.5 MG TABLET PO SCH ×2 (11:21→11:31)
[2018-07-22] MEDS: CARVEDILOL 6.25 MG TABLET PO SCH ×2 (11:21→11:32)
[2018-07-22] MEDS: CALCIUM (CARBONATE)/VITAMIN D 600 MG-400 UNIT TABLET PO SCH ×2 (11:21→11:32)
[2018-07-22] MEDS: ESCITALOPRAM 10 MG TABLET PO SCH ×2 (11:22→11:30)
[2018-07-22] MEDS: LOSARTAN 25 MG TABLET PO SCH ×2 (11:22→11:31)
[2018-07-22] MEDS: CARBOXYMETHYLCELLULOSE 1% OPH SOLN BOTH EYES SCH (11:25)
[2018-07-22 13:05] VITALS: BP 135/51
== END 2018-07-22 14:50 | DRG 470 ==
LOC: EDUNIT# → EDBD → N.ED 19:27 → SUATTDRO 07-20 00:23 → N.EDINP 07-20 00:23 → N.3E 07-20 01:06
PROVIDERS: ADMIT Internal Medicine; ATTEND Hospitalist